=== PATIENT | female | born 1985 | race Caucasian/White ===

== ENCOUNTER 2022-11-10 21:15 | Emergency (ER) | payer OTHER ==
[2022-11-10 21:33] VITALS: BP 115/67; PULSE 69; RESP 18; TEMP 98.4; BMI 27.4
[2022-11-11] MEDS ORDERED: LIDOCAINE 5% TOPICAL PATCH TP ONE (00:08)
[2022-11-11] MEDS ORDERED: KETOROLAC TROMETHAMINE 30 MG/1 ML VIAL IM ONE (00:08)
[2022-11-11] MEDS ORDERED: ACETAMINOPHEN 325 MG TABLET (FP) PO ONE (00:08)
[2022-11-11 00:58] LABS: EPI CELLS 28 /uL (0-25.1); HYALINE CASTS 1 /uL (0-3.1); PH,URINE 7.5 (5.0-8.0); URINE APPEARANCE CLEAR; URINE BACTERIA 348 /uL (0-1359); URINE BILIRUBIN NEGATIVE (NEGATIVE); URINE COLOR YELLOW; URINE GLUCOSE (UA) NEGATIVE (NEGATIVE); URINE KETONE NEGATIVE (NEGATIVE); URINE LEUK ESTERASE NEGATIVE (NEGATIVE); URINE NITRITE NEGATIVE (NEGATIVE); URINE PROTEIN NEGATIVE (NEGATIVE); URINE RBC 14 /uL (0-23.9); URINE UROBILINOGEN 0.2 mg/dL (0.2-1.0); URINE WBC 2 /uL (0-25.8)
[2022-11-11] MEDS ORDERED: LIDOCAINE PATCH REMOVAL MC SCH (22:00)
== END 2022-11-11 02:05 | disposition left against medical advice (07) ==
LOC: JERFT 21:15 → JER 21:15
PROC: 3E0233Z Introduction of Anti-inflammatory into Muscle, Percutaneous Approach (ICD-10-PCS; principal; 2022-11-10)
DX: M54.50 Low back pain, unspecified (principal)
CPT/HCPCS: 81003; 84703; 87086; 96372; 99284-25

== ENCOUNTER 2022-11-11 10:14 | Emergency (ER) | payer OTHER ==
[2022-11-11 10:28] VITALS: BP 108/69; PULSE 57; RESP 16; TEMP 98.5; BMI 27.4
[2022-11-11] MEDS ORDERED: CYCLOBENZAPRINE HCL 10 MG TABLET (FP) PO ONE (12:32)
[2022-11-11] MEDS ORDERED: ACETAMINOPHEN 500 MG TABLET (FP) PO ONE (12:32)
[2022-11-11] MEDS ORDERED: KETOROLAC TROMETHAMINE 30 MG/1 ML VIAL IM ONE (12:32)
[2022-11-11] MEDS ORDERED: LIDOCAINE 5% TOPICAL PATCH TP ONE (12:32)
[2022-11-11] MEDS ORDERED: LIDOCAINE 5% TOPICAL PATCH ONE (12:39)
[2022-11-11] MEDS ORDERED: ACETAMINOPHEN 500 MG TABLET (FP) ONE (12:40)
[2022-11-11] MEDS ORDERED: KETOROLAC TROMETHAMINE 30 MG/1 ML VIAL ONE (12:40)
[2022-11-11] MEDS ORDERED: CYCLOBENZAPRINE HCL 10 MG TABLET (FP) ONE (12:40)
[2022-11-11] MEDS ORDERED: LIDOCAINE PATCH REMOVAL MC ONE (22:00)
== END 2022-11-11 13:11 | disposition home or self-care (01) ==
LOC: JERFT 10:14
PROC: 3E0233Z Introduction of Anti-inflammatory into Muscle, Percutaneous Approach (ICD-10-PCS; principal; 2022-11-11)
DX: M54.50 Low back pain, unspecified (principal); X50.0XXA Overexertion from strenuous movement or load, initial encounter
CPT/HCPCS: 99284-25

== ENCOUNTER 2024-03-17 18:57 | Emergency (ER) | payer OTHER ==
[2024-03-17 19:01] VITALS: BP 116/78; PULSE 79; RESP 18; TEMP 98.5; BMI 30.7
[2024-03-17] MEDS ORDERED: SODIUM CHLORIDE 0.9% 500 ML INFUS.BAG IV ONE (20:07)
[2024-03-17] MEDS: SODIUM CHLORIDE 1,000 ML IV STA (20:45)
[2024-03-17 20:57] LABS: BASO % 0.9 % (0-2.0); EOS % 0.7 % (0-4.5); HEMATOCRIT 37.9 % (32.4-45.2); HEMOGLOBIN 12.8 GM/dL (10.7-15.3); LYMPH % 32.6 % (8-40); MCH 29.2 pg (25.7-33.7); MCHC 33.8 g/dl (32.0-36.0); MEAN CELL VOLUME 86.6 fl (80-96); MEAN PLT VOLUME 9.1 fl (7.5-11.1); MONO % 6.7 % (3.8-10.2); NEUT % 59.1 % (42.8-82.8); PLATELET COUNT 336 10^3/uL (134-434); RBC 4.38 M/mm3 (3.60-5.2); RDW 13.9 % (11.6-15.6); WHITE BLOOD COUNT 9.9 K/mm3 (4.0-10.0)
[2024-03-17 21:13] LABS: POTASSIUM 5.7 mmol/L (3.5-5.1)
[2024-03-17 21:15] LABS: ALBUMIN 3.8 g/dl (3.4-5.0); BLOOD UREA NITROGEN 10.2 mg/dL (7-18); CALCIUM 9.1 mg/dL (8.5-10.1)
[2024-03-17] MEDS ORDERED: ACETAMINOPHEN INJECTION 100 ML ONE (21:17)
[2024-03-17 21:18] LABS: CREATININE 0.8 mg/dL (0.55-1.3)
[2024-03-17 21:20] LABS: BILIRUBIN,TOTAL 0.4 mg/dL (0.2-1); TOT PROT 7.8 g/dl (6.4-8.2)
[2024-03-17] MEDS: ACETAMINOPHEN 1000 MG/100 ML BAG IVPB ONE (21:23)
[2024-03-17] MEDS ORDERED: METOCLOPRAMIDE HCL INJECTION 10 MG/2 ML VIAL ONE (23:42)
[2024-03-17] MEDS ORDERED: IBUPROFEN 600 MG TABLET (FP) PO ONE (23:42)
[2024-03-18] MEDS: METOCLOPRAMIDE HCL INJECTION 10 MG/2 ML VIAL IVPUSH ONE
[2024-03-18] MEDS: IBUPROFEN 600 MG TABLET (FP) PO ONE
== END 2024-03-18 00:30 | disposition home or self-care (01) ==
LOC: JER 18:57
PROC: 3E033GC Introduction of Other Therapeutic Substance into Peripheral Vein, Percutaneous Approach (ICD-10-PCS; principal; 2024-03-17)
PROC: 3E033NZ Introduction of Analgesics, Hypnotics, Sedatives into Peripheral Vein, Percutaneous Approach (ICD-10-PCS; 2024-03-17)
PROC: 3E0337Z Introduction of Electrolytic and Water Balance Substance into Peripheral Vein, Percutaneous Approach (ICD-10-PCS; 2024-03-17)
DX: R00.2 Palpitations (principal); R94.6 Abnormal results of thyroid function studies; R51.9 Headache, unspecified; R53.1 Weakness
CPT/HCPCS: 36415; 71046-TC-FY; 80053; 84439; 84443; 84484; 84703; 85025; 93005; 93010; 99285-25; J0131